=== PATIENT | male | born 1990 ===

== ENCOUNTER 2025-07-25 16:59 | Emergency (ER) | payer OTHER, SELFPAY ==
[2025-07-25 17:10] VITALS: BP 135/63; PULSE 86; RESP 17; TEMP 36.6; O2SAT 98; BMI 36.0
[2025-07-25 20:24] VITALS: BP 133/87; PULSE 76; RESP 20; O2SAT 100
--- NOTE | 2025-07-25 20:43 | ED.RECABL ---
HPI - Recheck/Abnormal Lab/Rx General Chief Complaint: Recheck/Abnormal Lab/Rx Stated Complaint: Out of SSRI script Time Seen by Provider: 07/25/25 20:43 Source: patient Mode of arrival: Ambulatory History of Present Illness HPI narrative: 35-year-old gentleman with a history of depression currently on Zoloft propranolol and was recently started on a 3rd. Medicine by a psychiatrist, was given a week of samples and has yet been able to fill the prescription. He has come over to [place] for situational reasons, refills of prescriptions are available in [place]. He is planning on getting back to [place] within 3-4 days. Without medications over the last 3 days his symptoms have gotten worse and he is having withdrawal symptoms from the sertraline. He is requesting brief refills of medications to help with transition Related Data Previous Rx's ?Medication ?Instructions ?Recorded propranolol 60 mg capsule,24 60 mg PO DAILY #5 caps 07/25/25 hr,extended release propranolol 60 mg capsule,24 60 mg PO DAILY #5 caps 07/25/25 hr,extended release sertraline 150 mg capsule 150 mg PO DAILY #5 caps 07/25/25 sertraline 150 mg capsule 150 mg PO DAILY #5 caps 07/25/25 Allergies Allergy/AdvReac Type Severity Reaction Status Date / Time No Known Drug Allergies Allergy Verified 07/25/25 17:09 Review of Systems Review of Systems Narrative: Pertinent positive and negative findings as per HPI Patient History tobacco type: smokeless tobacco Exam Initial Vital Signs Initial Vital Signs: Vital Signs Temperature 98 F 07/25/25 17:10 Pulse Rate 86 07/25/25 17:10 Respiratory Rate 17 07/25/25 17:10 Blood Pressure 135/63 07/25/25 17:10 Pulse Oximetry 98 07/25/25 17:10 Oxygen Delivery Method Room Air 07/25/25 17:10 General: Alert appropriate in no acute distress Respiratory: Able to speak in full sentences, no obvious respiratory distress Skin: No obvious rashes, warm and dry Neurologic: Grossly intact no obvious asymmetries or abnormalities Psych: appropriate insight somewhat depressed affect, good eye contact, fluent thought process Course Orders Ordered: ED Orders 07/25/25 17:18 Urinalysis and Microscopic Stat EKG-12 Lead Stat Vital Signs Vital signs: Vital Signs - 8 hr 07/25/25 17:10 Temperature 98 F Pulse Rate 86 Respiratory Rate 17 Blood Pressure 135/63 Pulse Oximetry 98 Oxygen Delivery Method Room Air MDM - Recheck/Abnormal Lab/Rx MDM Narrative Medical decision making narrative: 35-year-old gentleman with a history of depression, increasing psychosocial stressors, 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 He does not currently have a place to stay in [place]. He states that he does not have a plan to hurt himself. He is hoping that returning to his sertraline dose will help with some of the side effects he is having from not having it over the last 3-4 days. We discussed amount that he would like. He initially said 3 day, we negotiated up to 5 days and we will give him actually to prescriptions both for 5 days written so that he can access medications as needed until he is able to return home. He is given propranolol and sertraline doses this evening in the ER. He is safe for discharge Discharge Plan Departure Patient Disposition: Home Clinical Impression: Encounter for medication refill Activity Restrictions/Additional Instructions: I am sorry that you are struggling with this difficult time right now I am glad you came to the ER for help with medications. As we discussed, I have given you 2 prescriptions each with 5 days and printed so that you can take him to pharmacies as needed. 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 Prescriptions: New sertraline 150 mg capsule 150 mg PO DAILY Qty: 5 0RF propranolol 60 mg capsule,extended release 24 hr 60 mg PO DAILY Qty: 5 0RF propranolol 60 mg capsule,extended release 24 hr 60 mg PO DAILY Qty: 5 0RF sertraline 150 mg capsule 150 mg PO DAILY Qty: 5 0RF Stand Alone Forms: Patient Portal/API
--- NOTE | 2025-07-25 21:11 | EKG_ITS ---
[address] [id number] [address] [address] Test Date: 2025-07-25 Pat Name: Sukh Howard Department: Room: Gender: Male Sleep Lab Technician: : 1990 Requested By: Order Number: [id number] Reading MD: Matthew Guy MD Measurements Intervals [place] Rate: 74 P: 23 OK: 150 QRS: 39 QRSD: 94 T: 8 QT: 374 QTc: 415 Interpretive Statements Normal sinus rhythm Electronically Signed On 07-26-2025 9:28:37 PST by Matthew Guy MD
[2025-07-25] MEDS: PROPRANOLOL 10 MG TABLET 60 MG PO (21:13)
[2025-07-25] MEDS: SERTRALINE 50 MG TABLET 150 MG PO (21:13)
== END 2025-07-25 21:20 | disposition home or self-care (01) ==
PROVIDERS: Emergency Provider Emergency Medicine
DX: Z76.0 Encounter for issue of repeat prescription (principal); F32.A Depression, unspecified
CPT/HCPCS: 93005; 93010; 99283